=== PATIENT | female | born 1960 | race Caucasian/White ===

== ENCOUNTER → 2021-08-08 18:23 | Outpatient (CLI) | payer OTHER, MEDICAID, SELFPAY ==
--- NOTE | 2021-08-08 | DI.MRI.S_ITS ---
PROCEDURE: MR SHOULDER RT WO CON INDICATIONS: Adhesive capsulitis of right shoulder TECHNIQUE: Noncontrast oblique coronal T2 fast spin echo with fat saturation, oblique sagittal T1 spin echo and T2 fast spin echo with fat saturation, axial T1 spin echo and T2 fast spin echo with fat saturation through the shoulder. COMPARISON: None. FINDINGS: Image quality: Excellent. Rotator cuff: There is large full-thickness tear of the supraspinatus with tendon retraction to the musculotendinous junction. There is high-grade partial-thickness tear of the infraspinatus and subscapularis tendons and associated tendinitis. Sagittal images demonstrate mild supraspinatus muscle atrophy. Bones and bursae: No bone marrow contusions or fractures. Mild to moderate acromioclavicular and glenohumeral joint degeneration. The acromion demonstrates conventional anatomy, without an os acromiale. There subcoracoid bursal fluid consistent with bursitis. Capsule and soft tissues: Degenerative labral fraying of the anterior superior labrum. The long head of the biceps tendon appears irregular consistent with tendinitis. The rotator interval appears normal, without fibrosis. The coracohumeral ligament is normal in thickness. IMPRESSION: 1. Full-thickness tear of the supraspinatus tendon with tendon retraction to the musculotendinous junction. There is mild supraspinatus muscle atrophy. 2. High-grade partial-thickness tear of the infraspinatus and subscapularis tendons. 3. Biceps tendinitis. 4. Subcoracoid bursal fluid collection consistent with bursitis. 5. Mild-to- moderate acromioclavicular and glenohumeral joint degeneration. 6. Degenerative labral fraying of the anterior superior labrum. Dictated by: Ruth Coronado M.D. on 08/11/2021 at 7:56 Approved by: Ruth Coronado M.D. on 08/11/2021 at 8:04
== END ==
PROVIDERS: Family Provider Registered Nurse; PCP Nurse Practitioner Family; Referring Provider Nurse Practitioner Family; Visit Provider Nurse Practitioner Family
DX: M75.01 Adhesive capsulitis of right shoulder (principal); M75.121 Complete rotator cuff tear or rupture of right shoulder, not specified as traumatic; M75.21 Bicipital tendinitis, right shoulder; M19.011 Primary osteoarthritis, right shoulder
CPT/HCPCS: 73221

== ENCOUNTER 2022-03-29 21:57 | Observation (INO) | payer OTHER, MEDICAID, SELFPAY ==
[2022-03-29 22:03] VITALS: BP 140/74; PULSE 87; RESP 20; TEMP 36.8; O2SAT 100
[2022-03-29] MEDS: ONDANSETRON 4 MG ODT SL (22:35)
[2022-03-29 23:52] LABS: Adenovirus Not Detected (Not Detect); Coronavirus 229E Not Detected (Not Detect); Coronavirus HKU1 Not Detected (Not Detect); Coronavirus NL 63 Not Detected (Not Detect); Coronavirus OC43 Not Detected (Not Detect); Human Metapneumovirus Not Detected (Not Detect); Human Rhinovirus/Enterovirus Not Detected (Not Detect); Influenza A Not Detected (Not Detect); Influenza B Not Detected (Not Detect); Parainfluenza Virus 1 Not Detected (Not Detect); Parainfluenza Virus 2 Not Detected (Not Detect); SARS- CoV-2 Not Detected (Not Detecte)
[2022-03-29 23:53] LABS: B. parapertussis Not Detected (Not Detecte); Bordetella pertussis Not Detected (Not Detecte); Chlamydophila pneumoniae Not Detected (Not Detect); Mycoplasma pneumoniae Not Detected (Not Detect); Parainfluenza Virus 3 Detected (Not Detect); Parainfluenza Virus 4 Not Detected (Not Detect); Respiratory Syncytial Virus Not Detected (Not Detect)
[2022-03-30] VITALS (7 sets, daily range): BP systolic 108–129; BP diastolic 60–73; PULSE 67–96; RESP 17–19; TEMP 36.6–37.1; O2SAT 95–100; BMI 20.5
--- NOTE | 2022-03-30 00:10 | ED_ITS ---
HPI - Nausea/Vomiting/Diarrhea General Chief complaint: Nausea/Vomiting/Diarrhea Stated complaint: Coughing, vomiting Time Seen by Provider: 03/29/22 23:36 Source: patient and family Mode of arrival: Wheelchair History of Present Illness HPI Narrative: 62-year-old woman with some fairly fixed standing fears regarding allopathic medicine who feels that she is extraordinarily sensitive to medications comes in complaining of not feeling well. Over the last 3-4 days she her daughter and her granddaughter have all had mild cough and sore throat. She was convinced that this was COVID and has had 4- COVID tests subsequently. Still convinced was COVID she has been taking ivermectin 20 mg daily for the last 3 days along with excessively large doses of vitamin-D. She notes today that she is having more nausea. Reportedly had constipation the 1st 2 days of symptoms followed by diarrhea x2 today. She denies dysuria. Describes mild diffuse abdominal pain, headache, body aches and general malaise. Mild nonproductive cough without palpitation or significant chest pain. No skin changes Related Data Home Medications Medication Instructions Recorded Confirmed ASCORBIC ACID (VITAMIN C) 4,000 mg PO ##0 01/07/12 [ADRENAL SUPPLEMENT] ##0 01/07/12 Previous Rx's Medication Instructions Recorded ondansetron 4 mg disintegrating 4 mg PO Q8H PRN nausea and 03/30/22 tablet vomiting #10 tabs Allergies Allergy/AdvReac Type Severity Reaction Status Date / Time OPIATES Allergy Mild NAUSEA- Uncoded 01/26/18 11:50 SEVERE Review of Systems Review of Systems Narrative: Remainder of complete review of systems is otherwise unremarkable except for that included in the HPI. Exam Initial Vital Signs Initial Vital Signs: Vital Signs Temperature 98.3 F 03/29/22 22:03 Pulse Rate 87 03/29/22 22:03 Respiratory Rate 20 03/29/22 22:03 Blood Pressure 140/74 03/29/22 22:03 Pulse Oximetry 100 03/29/22 22:03 Oxygen Delivery Method 03/29/22 22:03 General: Appears to feel unwell and has minimal participation in exam or questioning. She does not appear to be toxic HEENT: Moist mucous membranes, normal sclera with reactive pupils, Neck: ,supple Respiratory: Lungs are clear to auscultation, no wheezing no rales no rhonchi. Full and symmetrical air movement, no accessory muscle use Cardiac: Regular rate and rhythm no murmurs no bruits Abdomen: Soft, nontender however palpation does cause increased nausea, good bowel tones, no flank pain Skin: Warm and dry, no rashes Neurologic: Grossly neurologically intact with no obvious asymmetries or abnormalities Extremities: No trauma, well perfused Psych: Poor eye contact and appears frightened Course Orders Ordered: ED Orders 03/29/22 23:01 Respiratory Panel (Film Array) Stat 03/30/22 00:30 Complete Blood Count AUTO DIFF Stat Comprehensive Metabolic Panel Stat Discontinued Medications Sodium Chloride (Normal Saline 0.9%) 1,000 mls @ 1,000 mls/hr IV BOLUS ONE Stop: 03/30/22 01:19 Last Infusion: 03/30/22 02:01 Dose: 0 mls/hr Documented By: Admin: 03/30/22 00:56 Dose: 1,000 mls/hr Documented By: CECILIA Sodium Chloride (Normal Saline 0.9%) 1,000 mls @ 1,000 mls/hr IV BOLUS ONE Stop: 03/30/22 02:37 Last Admin: 03/30/22 02:00 Dose: 1,000 mls/hr Documented By: TONY Ondansetron HCl (Ondansetron 4 Mg Odt) 4 mg SL NOW ONE Stop: 03/29/22 22:24 Last Admin: 03/29/22 22:35 Dose: 4 mg Documented By: CECILIA Ondansetron HCl (Ondansetron 4 Mg/2 Ml Inj) 4 mg IV NOW ONE Stop: 03/30/22 00:21 Last Admin: 03/30/22 00:56 Dose: 4 mg Documented By: CECILIA Ondansetron HCl (Ondansetron 4 Mg/2 Ml Inj) 4 mg IV NOW ONE Stop: 03/30/22 02:35 Last Admin: 03/30/22 02:38 Dose: 4 mg Documented By: TONY Ondansetron HCl (Ondansetron 4 Mg Odt Prepack) 1 bottle MISC SEEINSTR ONE Stop: 03/30/22 02:35 Last Admin: 03/30/22 02:38 Dose: 1 bottle Documented By: TONY Vital Signs Vital signs: Vital Signs - 8 hr 03/29/22 22:03 03/30/22 02:48 Temperature 98.3 F Pulse Rate 87 96 H Respiratory Rate 20 Blood Pressure 140/74 129/69 Pulse Oximetry 100 100 Oxygen Delivery Method Room Air Room Air MDM - Nausea/Vomiting/Diarrhea Lab Data Result diagrams: 03/30/22 00:30 03/30/22 00:30 Labs: Lab Results 03/29/22 03/30/22 03/30/22 Range/Units 23:01 00:30 00:30 WBC 6.4 (4.5-11.0) X10^3/uL RBC 4.33 (4.0-5.2) X10^6/uL Hgb 13.7 (12.0-16.0) g/dL Hct 39.0 (36-46) % MCV 90.2 (80-100) fL MCH 31.7 (26-34) PG MCHC 35.2 (30-36) % RDW 13.3 (11.6-14.8) % Plt Count 224 (150-400) X10^3/uL Neut % (Auto) 75.9 H (50-75) % Lymph % (Auto) 17.7 L (25-40) % [place] % (Auto) 5.9 (3-14) % Eos % (Auto) 0.0 L (2-4) % Baso % (Auto) 0.5 (0-2) % Neut # (Auto) 4800 (2153-4956) /uL Lymph # (Auto) 1100 (8939-7306) /uL [place] # (Auto) 400 (0-900) /uL Eos # (Auto) 0 (0-450) /uL Baso # (Auto) 0 (0-100) /uL Sodium 127 L (137-145) mmol/L Potassium 4.2 (3.4-5.1) mmol/L Chloride 94 L (98-107) mmol/L Carbon Dioxide 24 (22-32) mmol/L BUN 7 (7-17) mg/dL Creatinine 0.55 (0.52-1.04) mg/dL Estimated GFR > 60 (>60) mL/min BUN/Creatinine Ratio 12.7 (6-22) Glucose 124 H (80-110) mg/dL Calcium 8.9 (8.4-10.2) mg/dL Total Bilirubin 0.5 (0.2-1.3) mg/dL AST 34 (14-36) IU/L ALT 23 (<35) IU/L Alkaline Phosphatase 65 (38-126) U/L Total Protein 8.0 (6.3-8.2) g/dL Albumin 4.5 (3.5-5.0) g/dL Globulin 3.5 (1.7-4.1) g/dL Albumin/Globulin Ratio 1.3 (1.0-2.8) Chlamy pneumoniae PCR Not detected (Not Detect) Adenovirus (PCR) Not detected (Not Detect) B. pertussis DNA (PCR) Not detected (Not Detecte) B.parapertussis DNA PCR Not detected (Not Detecte) Coronavirus OC43 (PCR) Not detected (Not Detect) Coronavirus HKU1 (PCR) Not detected (Not Detect) Coronavirus 229E (PCR) Not detected (Not Detect) SARS-CoV-2 (PCR) Not detected (Not Detecte) Coronavirus NL63 (PCR) Not detected (Not Detect) Human Metapneumovir PCR Not detected (Not Detect) Influenza Type A (PCR) Not detected (Not Detect) Influenza Type B (PCR) Not detected (Not Detect) M. pneumoniae (PCR) Not detected (Not Detect) Parainfluenza 1 (PCR) Not detected (Not Detect) Parainfluenza 2 (PCR) Not detected (Not Detect) Parainfluenza 3 (PCR) Detected H (Not Detect) Parainfluenza 4 (PCR) Not detected (Not Detect) RSV (PCR) Not detected (Not Detect) Entero/Rhino (PCR) Not detected (Not Detect) MDM Narrative Medical decision making narrative: 62-year-old woman with parainfluenza mild cough mild sore throat high doses of ivermectin for 3 days as well as vitamin-D feeling generally unwell and quite anxious about being in the hospital and availing herself to allopathic medical care. She has not taken I remarked for 36 hours in the last dose of vitamin D was almost 24 hours ago. Her sodium is slightly low however she has had 2 L of fluid as well as Zofran. She is feeling better as she is being rehydrated. At this point she is able to get up and walk to the bathroom with minimal assistance. She continues to be concerned about her level of nausea despite the fact that she is not actually vomiting. She is not having a fever there is no signs of bacterial infection, she has normal renal function and no evidence of diarrhea at this time. Discussed with her signs and symptoms of upper respiratory infection caused by parainfluenza virus. Discussed also conservative treatment and use of ibuprofen or Tylenol if she chooses, broth to help with the low sodium level electrolytes added to her water which she has been doing regularly and watching for worsening or changing symptoms. 3am patient would like to be admitted to the hospital. 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 This reportedly happened with amoxicillin and she is convinced that it is again happening after the ivermectin. She complains that she feels worse than she did when she came in and is dizzy. She has voided a number of times after 2 L of fluid. She complains of a dry mouth. She has multiple fixed beliefs and concerns that I am not able to corroborate with labratory or clincial exam, however she is fairly insistent that she be admitted to the hospital to make sure that she does not go into renal failure or liver failure. Will discuss with the hospitalist service 3am Dr Reagan, hospitalist has graciously agreed to come independently examine the patient. Patient will be admitted for observation to follow the nausea/vomiting/dizziness/and hyponatremia Discharge Plan Departure Patient Disposition: Admitted as Observation Clinical Impression: Infection due to parainfluenza virus 3, Acute hyponatremia, Nausea & vomiting, Dizziness Admit Date/Time: 03/30/22 03:27 Admit Provider: Karina Reagan
[2022-03-30 00:52] LABS: Add Manual Diff / Slide Review NO; Basophils Absolute Auto 0 /uL (0-100); Basophils Percent Auto 0.5 % (0-2); Eosinophils Absolute Auto 0 /uL (0-450); Hemoglobin 13.7 g/dL (12.0-16.0); Lymphocytes Absolute Auto 1100 /uL (1100-4500); Lymphocytes Percent Auto 17.7 % (25-40); Mean Corpuscular HGB Conc 35.2 % (30-36); Mean Corpuscular Hemoglobin 31.7 PG (26-34); Mean Corpuscular Volume 90.2 fL (80-100); Monocytes Absolute Auto 400 /uL (0-900); Monocytes Percent Auto 5.9 % (3-14); Neutrophils Absolute Auto 4800 /uL (1500-7000); Neutrophils Percent Auto 75.9 % (50-75); Platelet Count 224 X10^3/uL (150-400); Red Blood Cell Count 4.33 X10^6/uL (4.0-5.2); Red Cell Distribution Width 13.3 % (11.6-14.8); White Blood Cell Count 6.4 X10^3/uL (4.5-11.0)
[2022-03-30] MEDS: SODIUM CHLORIDE 0.9% 1,000 ML 1000 ML IV ×2 (00:56→02:00)
[2022-03-30] MEDS: ONDANSETRON 4 MG/2 ML INJ IV ×2 (00:56→02:38)
[2022-03-30 01:01] LABS: Alanine Aminotransferase 23 IU/L (<35); Albumin 4.5 g/dL (3.5-5.0); Albumin Globulin Ratio 1.3 (1.0-2.8); Alkaline Phosphatase 65 U/L (38-126); Aspartate Aminotransferase 34 IU/L (14-36); BUN Creatinine Ratio 12.7 (6-22); Bilirubin Total 0.5 mg/dL (0.2-1.3); Blood Urea Nitrogen 7 mg/dL (7-17); Calcium 8.9 mg/dL (8.4-10.2); Carbon Dioxide 24 mmol/L (22-32); Chloride 94 mmol/L (98-107); Estimated Glomerular Filt Rate > 60 mL/min (>60); Globulin 3.5 g/dL (1.7-4.1); Glucose 124 mg/dL (80-110); HEMOLYSIS < 15 (0-50); Potassium 4.2 mmol/L (3.4-5.1); Sodium 127 mmol/L (137-145)
--- NOTE | 2022-03-30 03:35 | PC.NURSE ---
Friend's phone number if needed [facility] February [phone]
--- NOTE | 2022-03-30 03:49 | DI.RAD.S_ITS ---
PROCEDURE: XR CHEST 1V INDICATIONS: upper respiratory infection TECHNIQUE: One view of the chest was acquired. COMPARISON: None. FINDINGS: Surgical changes and devices: None. Lungs and pleura: Lungs are clear. No pleural effusions or pneumothorax. Mediastinum: Mediastinal contours appear normal. Heart size is normal. Bones and chest wall: No suspicious bony lesions. Overlying soft tissues appear unremarkable. IMPRESSION: No acute cardiopulmonary disease process. Dictated by: Christi Velez MD, PhD on 03/30/2022 at 8:02 Approved by: Christi Velez MD, PhD on 03/30/2022 at 8:03
--- NOTE | 2022-03-30 03:52 | P.HP_ITS ---
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 Over the last 3-4 days she her daughter and her granddaughter have all had mild cough and sore throat.? She was convinced that this was COVID and has had 4- COVID tests subsequently.? Still convinced was COVID she has been taking ivermectin 20 mg daily for the last 3 days along with excessively large doses of vitamin-D (unclear dosing).? She notes today that she is having more nausea.? She denies dysuria.? Describes mild diffuse abdominal pain, headache, body aches and general malaise.? Mild nonproductive cough without palpitation or significant chest pain.? She continues to feel very weak, dizzy when she gets up, not feeling well. Denies any fevers. She denies any other neurological symptoms. Never had such symptoms before. Patient History Comment: No chronic medical conditions Tonsillectomy Tubal ligation Family & Social History Social History: Patient lives with her friend. 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 She has 3 sons, 1 daughter. One son is in [place], contact in case of emergency. Tobacco & Substance use: No history of smoking, no alcohol use, no recreational drug use. She works as a massage therapist Meds Home Medications and Allergies Home Medications Medication Instructions Recorded Confirmed Type ASCORBIC ACID (VITAMIN C) 4,000 mg PO ##0 01/07/12 History [ADRENAL SUPPLEMENT] ##0 01/07/12 History ondansetron 4 mg disintegrating 4 mg PO Q8H PRN nausea and 03/30/22 Rx tablet vomiting #10 tabs Allergies Allergy/AdvReac Type Severity Reaction Status Date / Time OPIATES Allergy Mild NAUSEA- Uncoded 01/26/18 11:50 SEVERE Review of Systems Review of Systems Narrative: Constitutional, ENT, eyes, cardiovascular, respiratory, GI, , musculoskeletal, neurologic, psychiatric review of systems performed, negative, other than mentioned above in history. Exam Vital Signs (past 8 hours): - 03/29/22 22:03 03/30/22 02:48 Temperature 98.3 F Pulse Rate 87 96 H Respiratory Rate 20 Blood Pressure 140/74 129/69 Pulse Oximetry 100 100 Oxygen Delivery Method Room Air Room Air Oxygen Delivery Method Room Air Narrative Exam Narrative: Patient appears to be in mild distress, lying in the bed, able to make a reasonable conversation, able to follow commands. Able to ambulate without any help to bathroom. Mild abdominal discomfort on deep palpation around the periumbilical area, no guarding, no rigidity, no rebound tenderness, no organomegaly. Bilateral air entry on test examination clear, no wheeze no rhonchi. Constitutional, ENT, eyes, cardiovascular, respiratory, GI, Neurology, Psychiatry, organ system examination performed, negative other than as mentioned. Objective Labs Result Diagrams: 03/30/22 00:30 03/30/22 00:30 Labs: Laboratory Results - last 24 hr 03/29/22 03/30/22 03/30/22 23:01 00:30 00:30 WBC 6.4 RBC 4.33 Hgb 13.7 Hct 39.0 MCV 90.2 MCH 31.7 MCHC 35.2 RDW 13.3 Plt Count 224 Neut % (Auto) 75.9 H Lymph % (Auto) 17.7 L [place] % (Auto) 5.9 Eos % (Auto) 0.0 L Baso % (Auto) 0.5 Neut # (Auto) 4800 Lymph # (Auto) 1100 [place] # (Auto) 400 Eos # (Auto) 0 Baso # (Auto) 0 Sodium 127 L Potassium 4.2 Chloride 94 L Carbon Dioxide 24 BUN 7 Creatinine 0.55 Estimated GFR > 60 BUN/Creatinine Ratio 12.7 Glucose 124 H Calcium 8.9 Total Bilirubin 0.5 AST 34 ALT 23 Alkaline Phosphatase 65 Total Protein 8.0 Albumin 4.5 Globulin 3.5 Albumin/Globulin Ratio 1.3 Chlamy pneumoniae PCR Not detected Adenovirus (PCR) Not detected B. pertussis DNA (PCR) Not detected B.parapertussis DNA PCR Not detected Coronavirus OC43 (PCR) Not detected Coronavirus HKU1 (PCR) Not detected Coronavirus 229E (PCR) Not detected SARS-CoV-2 (PCR) Not detected Coronavirus NL63 (PCR) Not detected Human Metapneumovir PCR Not detected Influenza Type A (PCR) Not detected Influenza Type B (PCR) Not detected M. pneumoniae (PCR) Not detected Parainfluenza 1 (PCR) Not detected Parainfluenza 2 (PCR) Not detected Parainfluenza 3 (PCR) Detected H Parainfluenza 4 (PCR) Not detected RSV (PCR) Not detected Entero/Rhino (PCR) Not detected Assessment & Plan Assessment and plan (1) Acute hyponatremia: Status: Acute (2) Infection due to parainfluenza virus 3: Status: Acute (3) Nausea & vomiting: Status: Acute (4) Dizziness: Status: Acute Plan Admit patient as an observation status for overnight monitoring IV fluids for potential clinical dehydration, dizziness Euvolemic hyponatremia, mild, asymptomatic, should improve with IV fluids Follow-up on chest x-ray No acute neurological symptoms, I do not think any further imaging recommended If her repeat BMP shows sodium levels are improving, possible discharge in the morning I suspect some possibility of hypervitaminosis related to vitamin-D, but no established symptoms that I can confirm I do not believe she has overdosed on ivermectin at this time, continue to monitor Spent extensive time counseling the patient Advanced diet as tolerated, if patient able to tolerate diet, we will discharge her in the morning DVT and GI prophylaxis reviewed, patient is full code Care plan extensively discussed with the patient and friend at bedside., answered all questions. Time Spent With Patient Critical Care time: I spent a total of [] minutes of critical care time on this patient's care today; this time is exclusive of procedural time.
[2022-03-30] MEDS: SODIUM CHLORIDE 0.45% 1,000 ML 100 ML IV ×2 (04:49→17:35)
[2022-03-30 08:52] LABS: Add Manual Diff / Slide Review NO; Basophils Absolute Auto 0 /uL (0-100); Basophils Percent Auto 0.5 % (0-2); Eosinophils Absolute Auto 0 /uL (0-450); Eosinophils Percent Auto 0.7 % (2-4); Hematocrit 37.6 % (36-46); Hemoglobin 12.9 g/dL (12.0-16.0); Lymphocytes Absolute Auto 1300 /uL (1100-4500); Lymphocytes Percent Auto 24.6 % (25-40); Mean Corpuscular HGB Conc 34.2 % (30-36); Mean Corpuscular Volume 90.7 fL (80-100); Monocytes Absolute Auto 400 /uL (0-900); Monocytes Percent Auto 8.6 % (3-14); Neutrophils Absolute Auto 3400 /uL (1500-7000); Neutrophils Percent Auto 65.6 % (50-75); Platelet Count 229 X10^3/uL (150-400); Red Blood Cell Count 4.15 X10^6/uL (4.0-5.2); Red Cell Distribution Width 13.3 % (11.6-14.8); White Blood Cell Count 5.2 X10^3/uL (4.5-11.0)
[2022-03-30 09:24] LABS: BUN Creatinine Ratio 9.2 (6-22); Blood Urea Nitrogen 6 mg/dL (7-17); Calcium 8.6 mg/dL (8.4-10.2); Carbon Dioxide 26 mmol/L (22-32); Chloride 106 mmol/L (98-107); Estimated Glomerular Filt Rate > 60 mL/min (>60); Glucose 112 mg/dL (80-110); HEMOLYSIS < 15 (0-50); Potassium 4.3 mmol/L (3.4-5.1); Sodium 137 mmol/L (137-145)
--- NOTE | 2022-03-30 10:36 | CM.DANOTE ---
Addendum entered by Lalita Haque R.N. 03/30/22 12:56: Per MD patient medically stable for discharge to home today. Per RN no concerns at this time, patient getting ready for discharge home. No further dc needs at this time. Yesenia Haque RN/DCP Original Note: Initial Discharge Plan Assessment: Case received, EMR reviewed and met with patient. Introduced self and role. 62 year old female admitted early this morning to care of hospitalist team. PCP: Lizzie Lopez ([facility] Payer: [employer] and Medicaid Alert and oriented patient admitted early this am. She is lying on bed, appears tired. She reports that she has had cold/flu like symptoms for several days and has tested negative for Covid. She has been following an alternative treatment for Covid she states and has taken Ivermectin daily and vitamin D. She states she thinks she is feeling sick from these. She is hyponatremic on admission. She lives on [place] with her friend Yary who is currently staying at a motel in town while patient in hospital and Yary will transport at discharge. P: Possible discharge today. Labs pending. DCP to continue to follow. Discharge Planning/Care Management CM Discharge Assessment Start: 03/30/22 10:31 Freq: Status: Active Protocol: Document 03/30/22 10:31 (Rec: 03/30/22 10:36 [id number]) Discharge Planning Assessment Assigned Geriatric Nurse Practitioner Yesenia Haque RN/DCP Advance Directives? No History Provided By Patient Prior Living Arrangements House Household Members Roommate Yary Type of transporation used prior to Drives own vehicle admit Independent with ADL's Yes Is patient alert and oriented? Yes Caregiver for Another No Barriers to Discharge No Discharge Plan Home Transportation Arrangement Friend Yary ([phone]) will transport back to [place] upon discharge. (Yary staying at motel here in town while patient here). Referrals Initiated None needed Whiteboard Updated in Patient Room with Yes name and ext. # of Geriatric Nurse Practitioner Review Status In Process Next Review Type Continued Stay Review
--- NOTE | 2022-03-30 12:11 | PM.DS.1 ---
History of Present Illness History of Present Illness Date Patient Seen: 03/30/22 Time Patient Seen: 12:12 Date of Onset of Symptoms: 03/29/22 Chief complaint: Coughing, vomiting Narrative: Per Dr. 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 Over the last 3-4 days she her daughter and her granddaughter have all had mild cough and sore throat.? She was convinced that this was COVID and has had 4- COVID tests subsequently.? Still convinced was COVID she has been taking ivermectin 20 mg daily for the last 3 days along with excessively large doses of vitamin-D (unclear dosing).? She notes today that she is having more nausea.? She denies dysuria.? Describes mild diffuse abdominal pain, headache, body aches and general malaise.? Mild nonproductive cough without palpitation or significant chest pain.? She continues to feel very weak, dizzy when she gets up, not feeling well. Denies any fevers. She denies any other neurological symptoms. Never had such symptoms before. Discharge Providers Provider Date of admission: 03/30/22 03:27 Discharge Date: 03/30/22 Primary care physician: SIMRAN Rodriguez Discharge provider: Jose Manuel Leija DO Exam Vital Signs (past 8 hours): - 03/30/22 04:18 03/30/22 08:00 03/30/22 11:54 Temperature 98.1 F 98.8 F 98.3 F Pulse Rate 71 67 82 Respiratory Rate 19 17 18 Blood Pressure 117/71 108/68 123/60 Pulse Oximetry 96 99 98 Oxygen Flow Rate 0 0 Oxygen Delivery Method Room Air Oxygen Flow Rate 0 Objective Labs Result Diagrams: 03/30/22 08:37 03/30/22 08:37 Labs: Laboratory Results - last 24 hr 03/29/22 03/30/22 03/30/22 23:01 00:30 00:30 WBC 6.4 RBC 4.33 Hgb 13.7 Hct 39.0 MCV 90.2 MCH 31.7 MCHC 35.2 RDW 13.3 Plt Count 224 Neut % (Auto) 75.9 H Lymph % (Auto) 17.7 L [place] % (Auto) 5.9 Eos % (Auto) 0.0 L Baso % (Auto) 0.5 Neut # (Auto) 4800 Lymph # (Auto) 1100 [place] # (Auto) 400 Eos # (Auto) 0 Baso # (Auto) 0 Sodium 127 L Potassium 4.2 Chloride 94 L Carbon Dioxide 24 BUN 7 Creatinine 0.55 Estimated GFR > 60 BUN/Creatinine Ratio 12.7 Glucose 124 H Calcium 8.9 Total Bilirubin 0.5 AST 34 ALT 23 Alkaline Phosphatase 65 Total Protein 8.0 Albumin 4.5 Globulin 3.5 Albumin/Globulin Ratio 1.3 Chlamy pneumoniae PCR Not detected Adenovirus (PCR) Not detected B. pertussis DNA (PCR) Not detected B.parapertussis DNA PCR Not detected Coronavirus OC43 (PCR) Not detected Coronavirus HKU1 (PCR) Not detected Coronavirus 229E (PCR) Not detected SARS-CoV-2 (PCR) Not detected Coronavirus NL63 (PCR) Not detected Human Metapneumovir PCR Not detected Influenza Type A (PCR) Not detected Influenza Type B (PCR) Not detected M. pneumoniae (PCR) Not detected Parainfluenza 1 (PCR) Not detected Parainfluenza 2 (PCR) Not detected Parainfluenza 3 (PCR) Detected H Parainfluenza 4 (PCR) Not detected RSV (PCR) Not detected Entero/Rhino (PCR) Not detected 03/30/22 03/30/22 08:37 08:37 WBC 5.2 RBC 4.15 Hgb 12.9 Hct 37.6 MCV 90.7 MCH 31.0 MCHC 34.2 RDW 13.3 Plt Count 229 Neut % (Auto) 65.6 Lymph % (Auto) 24.6 L [place] % (Auto) 8.6 Eos % (Auto) 0.7 L Baso % (Auto) 0.5 Neut # (Auto) 3400 Lymph # (Auto) 1300 [place] # (Auto) 400 Eos # (Auto) 0 Baso # (Auto) 0 Sodium 137 D Potassium 4.3 Chloride 106 Carbon Dioxide 26 BUN 6 L Creatinine 0.65 Estimated GFR > 60 BUN/Creatinine Ratio 9.2 Glucose 112 H Calcium 8.6 Total Bilirubin AST ALT Alkaline Phosphatase Total Protein Albumin Globulin Albumin/Globulin Ratio Chlamy pneumoniae PCR Adenovirus (PCR) B. pertussis DNA (PCR) B.parapertussis DNA PCR Coronavirus OC43 (PCR) Coronavirus HKU1 (PCR) Coronavirus 229E (PCR) SARS-CoV-2 (PCR) Coronavirus NL63 (PCR) Human Metapneumovir PCR Influenza Type A (PCR) Influenza Type B (PCR) M. pneumoniae (PCR) Parainfluenza 1 (PCR) Parainfluenza 2 (PCR) Parainfluenza 3 (PCR) Parainfluenza 4 (PCR) RSV (PCR) Entero/Rhino (PCR) PFSH Social History household members: none Smoking Status: Never smoker alcohol intake: never Discharge Plan Discharge Plan Patient Disposition: Home Provider Discharge Comment: You were admitted to the hospital with symptoms of ivermectin toxicity. This improved with fluids and time. Would avoid this medication in the future. Discharge orders & Medications Prescriptions: New ondansetron HCl 4 mg tablet 4 mg PO Q8H PRN (Reason: nausea and vomiting) 10 Days Qty: 30 0RF Continued ASCORBIC ACID (VITAMIN C) 4,000 mg 4,000 mg PO Qty: 0 [ADRENAL SUPPLEMENT] Qty: 0 Label Comments: Patient states she takes this supplement sometimes but doesn't know dose. Follow up/Referrals: Lizzie Lopez ARNP [Primary Care Provider] - Diet/Activity/Treatments Diet: Diet as Tolerated Activity: As tolerated Visit Report/Discharge Packet Instructions: DI for Viral Upper Respiratory Infection -- Adult Discharge Data Primary Care Provider: Lizzie Lopez Attending Provider: Karina Reagan VTE Deep Vein Thrombosis/Pulmonary Embolism Present on Admission: No
--- NOTE | 2022-03-30 12:33 | PC.NURSE ---
Addendum entered by Jessi Lovelace R.N. 03/30/22 17:51: Pt c/o increased symptoms of weakness and dizziness this afternoon due to positive Parainfluenza 3. Re-evaluated by physician and patient will stay one more night in patient for monitoring due to ivermectin toxicity. Original Note: Pt reports feeling an improvement in her symptoms this morning. She is no longer feeling dizzy and diarrhea has resolved. She denies any pain. Pt has been discharged to home.
--- NOTE | 2022-03-30 16:57 | PM.PN.1 ---
Subjective Subjective Date Patient Seen: 03/30/22 Interval history: Brief progress note. Patient continues to have intermittent dizziness, nausea, abdominal pain, visual difficulties. These are consistent ivermectin toxicity as patient endorsed taking more than what she was supposed to. She was slightly improved earlier, now feeling worse again. Will continue to provide supportive treatment with symptomatic relief. Exam Vital Signs (past 8 hours): - 03/30/22 11:54 03/30/22 16:00 Temperature 98.3 F 98.5 F Pulse Rate 82 75 Respiratory Rate 18 17 Blood Pressure 123/60 111/73 Pulse Oximetry 98 99 Oxygen Flow Rate 0 0 Oxygen Delivery Method Room Air Oxygen Flow Rate 0 Objective Labs Result Diagrams: 03/30/22 08:37 03/30/22 08:37 Labs: Laboratory Results - last 24 hr 03/29/22 03/30/22 03/30/22 23:01 00:30 00:30 WBC 6.4 RBC 4.33 Hgb 13.7 Hct 39.0 MCV 90.2 MCH 31.7 MCHC 35.2 RDW 13.3 Plt Count 224 Neut % (Auto) 75.9 H Lymph % (Auto) 17.7 L Metcalfe % (Auto) 5.9 Eos % (Auto) 0.0 L Baso % (Auto) 0.5 Neut # (Auto) 4800 Lymph # (Auto) 1100 [place]calfe # (Auto) 400 Eos # (Auto) 0 Baso # (Auto) 0 Sodium 127 L Potassium 4.2 Chloride 94 L Carbon Dioxide 24 BUN 7 Creatinine 0.55 Estimated GFR > 60 BUN/Creatinine Ratio 12.7 Glucose 124 H Calcium 8.9 Total Bilirubin 0.5 AST 34 ALT 23 Alkaline Phosphatase 65 Total Protein 8.0 Albumin 4.5 Globulin 3.5 Albumin/Globulin Ratio 1.3 Chlamy pneumoniae PCR Not detected Adenovirus (PCR) Not detected B. pertussis DNA (PCR) Not detected B.parapertussis DNA PCR Not detected Coronavirus OC43 (PCR) Not detected Coronavirus HKU1 (PCR) Not detected Coronavirus 229E (PCR) Not detected SARS-CoV-2 (PCR) Not detected Coronavirus NL63 (PCR) Not detected Human Metapneumovir PCR Not detected Influenza Type A (PCR) Not detected Influenza Type B (PCR) Not detected M. pneumoniae (PCR) Not detected Parainfluenza 1 (PCR) Not detected Parainfluenza 2 (PCR) Not detected Parainfluenza 3 (PCR) Detected H Parainfluenza 4 (PCR) Not detected RSV (PCR) Not detected Entero/Rhino (PCR) Not detected 03/30/22 03/30/22 08:37 08:37 WBC 5.2 RBC 4.15 Hgb 12.9 Hct 37.6 MCV 90.7 MCH 31.0 MCHC 34.2 RDW 13.3 Plt Count 229 Neut % (Auto) 65.6 Lymph % (Auto) 24.6 L [place] % (Auto) 8.6 Eos % (Auto) 0.7 L Baso % (Auto) 0.5 Neut # (Auto) 3400 Lymph # (Auto) 1300 [place]fe # (Auto) 400 Eos # (Auto) 0 Baso # (Auto) 0 Sodium 137 D Potassium 4.3 Chloride 106 Carbon Dioxide 26 BUN 6 L Creatinine 0.65 Estimated GFR > 60 BUN/Creatinine Ratio 9.2 Glucose 112 H Calcium 8.6 Total Bilirubin AST ALT Alkaline Phosphatase Total Protein Albumin Globulin Albumin/Globulin Ratio Chlamy pneumoniae PCR Adenovirus (PCR) B. pertussis DNA (PCR) B.parapertussis DNA PCR Coronavirus OC43 (PCR) Coronavirus HKU1 (PCR) Coronavirus 229E (PCR) SARS-CoV-2 (PCR) Coronavirus NL63 (PCR) Human Metapneumovir PCR Influenza Type A (PCR) Influenza Type B (PCR) M. pneumoniae (PCR) Parainfluenza 1 (PCR) Parainfluenza 2 (PCR) Parainfluenza 3 (PCR) Parainfluenza 4 (PCR) RSV (PCR) Entero/Rhino (PCR) [facility] Social History household members: none Smoking Status: Never smoker alcohol intake: never Assessment & Plan Time Spent With Patient Critical Care time: I spent a total of [] minutes of critical care time on this patient's care today; this time is exclusive of procedural time. Quality VTE Deep Vein Thrombosis/Pulmonary Embolism Present on Admission: No
[2022-03-31] MEDS: SODIUM CHLORIDE 0.45% 1,000 ML 100 ML IV (00:38)
[2022-03-31 05:30] VITALS: BP 100/64; PULSE 78; RESP 18; TEMP 36.6; O2SAT 95
[2022-03-31 08:30] VITALS: BP 102/63; PULSE 79; RESP 18; TEMP 36.5; O2SAT 98
--- NOTE | 2022-03-31 08:54 | P.DS_ITS ---
History of Present Illness History of Present Illness Date Patient Seen: 03/31/22 Date of Onset of Symptoms: 03/29/22 Chief complaint: Coughing, vomiting Narrative: Per Dr. 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 Over the last 3-4 days she her daughter and her granddaughter have all had mild cough and sore throat.? She was convinced that this was COVID and has had 4- COVID tests subsequently.? Still convinced was COVID she has been taking ivermectin 20 mg daily for the last 3 days along with excessively large doses of vitamin-D (unclear dosing).? She notes today that she is having more nausea.? She denies dysuria.? Describes mild diffuse abdominal pain, headache, body aches and general malaise.? Mild nonproductive cough without palpitation or significant chest pain.? She continues to feel very weak, dizzy when she gets up, not feeling well. Denies any fevers. She denies any other neurological symptoms. Never had such symptoms before. Discharge Providers Provider Date of admission: 03/30/22 03:27 Discharge Date: 03/31/22 Primary care physician: SIMRAN Rodriguez Discharge provider: Jose Manuel Leija DO Summary Hospital Course Discharge Diagnosis: (1) Acute hyponatremia, resolved (2) Infection due to parainfluenza virus 3: (3) Toxicity of Ivermectin, nausea and vomiting, dizziness. Hospital Course: This is a 62-year-old female who was admitted with generalized malaise, nonspecific abdominal pain, headache, body aches, and dizziness. She did endorse taking more ivermectin and she was supposed to. She took I have remarked in because she was convinced that she had COVID despite for negative test. Respiratory panel showed a parainfluenza virus. Supportive treatment was provided, and the patient's symptoms continue to improve. She was discharged ho me the day after tolerating a diet and with minimal residual symptoms. She was sent home with a prescription for ondansetron and was advised against taking ivermectin the future. No changes to her home supplement are recommended at this time. Exam Vital Signs (past 8 hours): - 03/31/22 05:30 03/31/22 08:30 Temperature 97.8 F 97.7 F Pulse Rate 78 79 Respiratory Rate 18 18 Blood Pressure 100/64 102/63 Pulse Oximetry 95 98 Oxygen Flow Rate 0 Oxygen Delivery Method Room Air Oxygen Flow Rate 0 Narrative Exam Narrative: General:? Patient is well developed, slightly thin appearing female, in no distress at this time. HEENT:? Normocephalic, atraumatic, extraocular muscles intact, oral pharynx is clear and mucous membranes are moist. Chest:? Normal AP diameter and contour without kyphoscoliosis, no tachypnea, equal chest rise bilaterally. Lungs:? CTA b/l no wheezing rhonchi or rales. Cardio:?RRR no m/r/g. Musculoskeletal:? Muscle strength and tone are equal within normal limits, no deformity. Extremities: No edema or joint effusions. No cyanosis or clubbing. Skin:? Pale,? Warm to touch,dry and intact without rashes, ulcerations or petechiae.? Neuro:? Alert and orientated x3, no gross deficits noted of cranial nerves. Psych:? Patient has a well-kept appearance, appropriate affect, mental status attitude thought context and judgment are appropriate for age. Objective Labs Result Diagrams: 03/30/22 08:37 03/30/22 08:37 Labs: Laboratory Results - last 24 hr 03/30/22 08:37 Sodium 137 D Potassium 4.3 Chloride 106 Carbon Dioxide 26 BUN 6 L Creatinine 0.65 Estimated GFR > 60 BUN/Creatinine Ratio 9.2 Glucose 112 H Calcium 8.6 PFSH Social History household members: none Smoking Status: Never smoker alcohol intake: never Discharge Plan Discharge Plan Patient Disposition: Home Provider Discharge Comment: You were admitted to the hospital with symptoms of ivermectin toxicity. This improved with fluids and time. Would avoid this medication in the future. Discharge orders & Medications Prescriptions: New ondansetron HCl 4 mg tablet 4 mg PO Q8H PRN (Reason: nausea and vomiting) 14 Days Qty: 30 0RF Continued ASCORBIC ACID (VITAMIN C) 4,000 mg 4,000 mg PO Qty: 0 [ADRENAL SUPPLEMENT] Qty: 0 Label Comments: Patient states she takes this supplement sometimes but doesn't know dose. Follow up/Referrals: Lizzie Lopez ARNP [Primary Care Provider] - Diet/Activity/Treatments Diet: Diet as Tolerated Activity: As tolerated Other treatments: Gatorade Fit-stevia sweetened electrolyte beverage Visit Report/Discharge Packet Instructions: DI for Viral Upper Respiratory Infection -- Adult Discharge Data Primary Care Provider: Lizzie Lopez Attending Provider: Karina Reagan Quality VTE Deep Vein Thrombosis/Pulmonary Embolism Present on Admission: No
--- NOTE | 2022-03-31 11:43 | PC.NURSE ---
Pt is A&O x 4, advises she is markedly improved today in her symptoms. She denies any nausea or diarrhea. VSS. IV removed, catheter intact. Pt discharged via wheelchair with all belongings at 1142 am.
== END 2022-03-31 11:42 | disposition home or self-care (01) ==
LOC: ED 03-30 02:09 → AC 03-30 03:28
PROVIDERS: Internal Medicine; Admitting Provider Family Medicine; Emergency Provider Emergency Medicine; Family Provider Registered Nurse; PCP Nurse Practitioner Family; Referring Provider Emergency Medicine; Visit Provider Family Medicine
DX: E87.1 Hypo-osmolality and hyponatremia (principal); B34.8 Other viral infections of unspecified site; R42 Dizziness and giddiness; R11.2 Nausea with vomiting, unspecified; R19.7 Diarrhea, unspecified; T37.4X5A Adverse effect of anthelminthics, initial encounter; Z20.822 Contact with and (suspected) exposure to COVID-19
CPT/HCPCS: 36415; 71045; 80048; 80053; 82962; 85025; 87633; 96361; 96374; 96376; 99284; G0378; J2405; J7050